=== PATIENT | female | born 1970 | race Caucasian/White ===

== ENCOUNTER → 2018-09-14 10:15 | Outpatient (CLI) | payer OTHER, SELFPAY ==
--- NOTE | 2018-09-14 | DI.MRI.S_ITS ---
PROCEDURE: MR KNEE LT WO CON INDICATIONS: INTERNAL DERANGEMENT OF BOTH KNEES TECHNIQUE: Noncontrast sagittal PD fast spin echo and T2 fast spin echo with fat saturation, sagittal 3-D FLASH with fat saturation; coronal T1 spin echo and PD fast spin echo with fat saturation, and axial PD fast spin echo with fat saturation through the knee. COMPARISON: None. FINDINGS: Image quality: Excellent. Menisci: There is amorphous high signal intensity within the medial meniscal body, without definite articular surface extension. However, there is a ganglion cyst just inferior to the medial meniscal body and posterior horn, at the medial aspect of the medial tibial plateau, measuring 30 mm craniocaudal by 30 mm anteroposterior by 5 mm transverse thickness. There is lateral extrusion of the lateral meniscus, which is detached posteriorly. Linear high signal intensity obliquely traverses the lateral meniscal body and anterior horn, demonstrating superior articular surface extension, indicating oblique tearing. Cruciate ligaments: The anterior and posterior cruciate ligaments appear intact. Medial structures: The medial collateral ligament appears intact. Visualized portions of the pes anserinus tendons appear normal. No abnormal bursal fluid. Lateral structures: The lateral collateral ligament, long and short heads of the biceps femoris tendon appear intact. The popliteus tendon appears normal. Iliotibial band appears normal. Anterior structures: The quadriceps and patellar tendons appear intact. Patellar alignment is normal. No femoral trochlear dysplasia or ventral trochlear prominence. There is mild edema in the superolateral aspect of the infrapatellar fat pad. Bones and cartilage: No bone marrow contusions or fractures. There is moderate tricompartmental periarticular osteophyte formation. There is a mildly prominent osteophyte involving the posterior aspect of the medial tibial plateau measuring 5 mm transverse by 4 mm craniocaudal. Severe diffuse articular cartilage loss overlies the weightbearing aspects of the lateral femoral condyle and lateral tibial plateau posteriorly. Joint space: There is a small knee joint effusion. No Strange's cyst. Normal appearing synovial plicae are incidentally noted. IMPRESSION: 1. Lateral meniscal tearing. 2. Medial meniscal degeneration without direct evidence of medial meniscal tearing. However, a ganglion cyst at the inferior aspect of the medial meniscus is present, which may indicate an occult underlying meniscal tear. 3. Lateral compartment articular cartilage loss. 4. Small knee joint effusion. 5. Superolateral infrapatellar fat pad edema which may indicate early/mild lateral patellofemoral friction syndrome in the appropriate clinical setting. Dictated by: Maria T Cordero M.D. on 09/14/2018 at 11:07 Approved by: Maria T Cordero M.D. on 09/14/2018 at 11:13
--- NOTE | 2018-09-14 | DI.MRI.S_ITS ---
PROCEDURE: MR KNEE RT WO CON INDICATIONS: INTERNAL DERANGEMENT OF BOTH KNEES TECHNIQUE: Noncontrast sagittal PD fast spin echo and T2 fast spin echo with fat saturation, sagittal 3-D FLASH with fat saturation; coronal T1 spin echo and PD fast spin echo with fat saturation, and axial PD fast spin echo with fat saturation through the right knee. COMPARISON: None. FINDINGS: Image quality: Excellent. Menisci: There is severe degenerative type tearing of the lateral meniscus with complete absence of the anterior horn and marked irregularity of the posterior horn. The medial demonstrates normal morphology and internal signal. The meniscal root ligaments appear intact. Cruciate ligaments: The anterior and posterior cruciate ligaments appear intact. Medial structures: The medial collateral ligament appears intact. The posterior oblique ligament, semimembranosus tendon insertions, oblique popliteal ligament, and meniscocapsular junction appear intact. Visualized portions of the pes anserinus tendons appear normal. No abnormal bursal fluid. Lateral structures: The lateral collateral ligament, long and short heads of the biceps femoris tendon appear intact. The popliteus tendon appears normal; the popliteofibular ligament appears intact. The posterosuperior and anteroinferior popliteomeniscal fascicles appear intact. The arcuate and fabellofibular ligaments appear intact, on either side of the lateral inferior geniculate artery. Iliotibial band appears normal. Anterior structures: The quadriceps and patellar tendons appear intact. Patellar alignment is normal. No femoral trochlear dysplasia or ventral trochlear prominence. No edema in the infrapatellar fat pad. Bones and cartilage: No bone marrow contusions or fractures. Tricompartmental osteoarthritis is noted including thinning of articular cartilage and osteophytosis. Osteoarthritic degenerative changes are mild to moderate in the patellofemoral and medial compartments and severe in the lateral compartment. Joint space: There is small joint effusion. There is a 0.8 x 1.6 x 0.8 cm ossified loose body posterior to the tibial attachment of the posterior cruciate ligament. No Strange's cyst. Normal appearing synovial plicae are incidentally noted. IMPRESSION: 1. Tricompartmental osteoarthritis. Osteoarthritic degenerative changes are severe in the lateral compartment. 2. 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 3. 0.8 x 1.6 x 0.8 cm ossified intra-articular loose body. 4. Small joint effusion. Dictated by: Monica Mcrae MD, PhD on 09/14/2018 at 16:27 Approved by: Monica Mcrae MD, PhD on 09/15/2018 at 6:12
== END ==
PROVIDERS: PCP Family Medicine; Visit Provider Family Medicine
DX: S83.282A Other tear of lateral meniscus, current injury, left knee, initial encounter (principal); M23.351 Other meniscus derangements, posterior horn of lateral meniscus, right knee; M17.11 Unilateral primary osteoarthritis, right knee; M67.462 Ganglion, left knee; M25.462 Effusion, left knee; M25.461 Effusion, right knee
CPT/HCPCS: 73721

== ENCOUNTER → 2021-06-20 12:16 | Outpatient (CLI) | payer OTHER, SELFPAY ==
[2021-06-20 22:35] LABS: COVID19 - ORCAS (NP or Nasal) Negative (Negative)
== END ==
PROVIDERS: PCP Family Medicine; Visit Provider Physician Assistant Medical
DX: Z20.822 Contact with and (suspected) exposure to COVID-19 (principal)
CPT/HCPCS: U0003

== ENCOUNTER → 2021-12-31 11:27 | Outpatient (CLI) | payer OTHER, SELFPAY ==
--- NOTE | 2021-12-31 | DI.MG.S_ITS ---
BILATERAL DIGITAL SCREENING MAMMOGRAM 3D/2D WITH CAD: 12/31/2021 CLINICAL: Routine screening. Comparison is made to exams dated: 05/05/2017 mammogram and 08/23/2015 mammogram - [facility]. The tissue of both breasts is heterogeneously dense. This may lower the sensitivity of mammography. Current study was also evaluated with a Computer Aided Detection (CAD) system. No significant masses, calcifications, or other findings are seen in either breast. There has been no significant interval change. IMPRESSION: NEGATIVE There is no mammographic evidence of malignancy. A 1 year screening mammogram is recommended. This exam was interpreted at Station ID: [id number]. NOTE: For mammograms, a report in lay terms will be sent to the patient. Approximately 15% of breast malignancies will not be visualized mammographically. In the management of a palpable breast mass, a negative mammogram must not discourage biopsy of a clinically suspicious lesion. Electronically Signed By: Sawyer patricio/spencer:12/31/2021 12:15:26 letter sent: Normal Exam ACR BI-RADS Category 1: Negative 3341F
== END ==
PROVIDERS: PCP Family Medicine; Referring Provider Family Medicine; Visit Provider Family Medicine
DX: Z12.31 Encounter for screening mammogram for malignant neoplasm of breast (principal)
CPT/HCPCS: 77063; 77067

== ENCOUNTER → 2024-02-23 11:04 | Outpatient (CLI) | payer OTHER, SELFPAY ==
--- NOTE | 2024-02-23 11:09 | DI.RAD.S_ITS ---
PROCEDURE: XR CERVICAL SPINE 2V OR 3V INDICATIONS: NECK PAIN TECHNIQUE: 3 view(s) of the cervical spine were acquired. COMPARISON: None. FINDINGS: Bones: No fractures or dislocations to the T1 level. The lateral masses of C1 appear intact on the odontoid view. No suspicious bony lesions. Soft tissues: No prevertebral soft tissue swelling. IMPRESSION: No displaced fracture or traumatic subluxation. Dictated by: Dane Huff M.D. on 02/23/2024 at 15:52 Approved by: Dane Huff M.D. on 02/23/2024 at 15:53
--- NOTE | 2024-02-23 12:52 | DI.MG.S_ITS ---
BILATERAL DIGITAL SCREENING MAMMOGRAM 3D/2D WITH CAD: 02/23/2024 CLINICAL: Routine screening. Comparison is made to exams dated: 12/31/2021 mammogram, 05/05/2017 mammogram, and 08/23/2015 mammogram - [facility]. There are scattered areas of fibroglandular density in both breasts (category b / 25%-50% glandular tissue). Current study was also evaluated with a Computer Aided Detection (CAD) system. No significant masses, calcifications, or other findings are seen in either breast. There has been no significant interval change. IMPRESSION: NEGATIVE There is no mammographic evidence of malignancy. A 1 year screening mammogram is recommended. Based on the Tyrer Cuzick model (a risk assessment model) the patient's lifetime risk is 9.5% and her 10 year risk is 2.6%. According to the ACR, ACS, and NCCN guidelines, an annual breast MRI exam along with mammogram is recommended if the patient's lifetime risk is 20% or greater. This exam was interpreted at Station ID: [id number]. NOTE: For mammograms, a report in lay terms will be sent to the patient. Approximately 15% of breast malignancies will not be visualized mammographically. In the management of a palpable breast mass, a negative mammogram must not discourage biopsy of a clinically suspicious lesion. Electronically Signed By: Ernestina hennessy/spencer:02/23/2024 15:42:58 letter sent: Normal Exam ACR BI-RADS Category 1: Negative 3341F
== END ==
PROVIDERS: PCP Family Medicine; Referring Provider Family Medicine; Visit Provider Family Medicine
DX: Z12.31 Encounter for screening mammogram for malignant neoplasm of breast (principal); R92.323 Mammographic fibroglandular density, bilateral breasts; M54.2 Cervicalgia
CPT/HCPCS: 72040; 77063; 77067

== ENCOUNTER → 2025-01-24 11:59 | Outpatient (CLI) | payer BC, SELFPAY ==
--- NOTE | 2025-01-24 11:59 | DI.US.S_ITS ---
PROCEDURE: US PELVIC COMPLETE INDICATIONS: Postmenopausal bleeding TECHNIQUE: Real-time scanning was performed of the pelvic organs, with image documentation. Additional endovaginal scanning was necessary due to incomplete visualization of the adnexal and endometrial structures by transabdominal scanning. COMPARISON: None. FINDINGS: Uterus: Uterus is anteverted and enlarged in size at 12.9 x 9.2 x 12 point cm. The myometrium is heterogeneous. The endometrium measures 6.3 mm combined thickness. Right intramural fibroid measuring 7.2 x 6.7 x 5.8 cm. Multiple additional small fibroids. Ovaries: The right ovary is not seen. The left ovary measures 2.2 x 2.5 x 2.4 cm, with a calculated ovarian volume of 6.8 cc. Left ovarian cyst measuring 1.7 x 2.2 x 2.0 cm. Other: No pathologic free abdominal or pelvic fluid. IMPRESSION: Endometrium is thickened measuring 6 mm. Recommend short-term follow-up ultrasound or endometrial sampling for further evaluation. Left ovarian cyst measuring 2.2 cm, given postmenopausal status, follow-up ultrasound is recommended to ensure stability or resolution. Large intramural fibroid measuring 7.2 cm. We strive to produce accurate, complete, and clear reports of imaging services. To assist us in improving patient care, this report was composed using standard report templates and voice recognition software. Therefore, it may contain abnormal punctuation, insertions and/or omissions. Occasional wrong-word or sound-alike substitutions may occur. Though we review the report and make efforts to correct it, we do recommend that the report be read carefully in proper context to recognize any text inaccuracies. Dictated by: Bc Metzger M.D. on 01/24/2025 at 16:27 Approved by: Bc Metzger M.D. on 01/24/2025 at 16:29
== END ==
PROVIDERS: PCP Family Medicine; Referring Provider Obstetrics & Gynecology; Visit Provider Obstetrics & Gynecology
DX: N95.0 Postmenopausal bleeding (principal); D25.1 Intramural leiomyoma of uterus; N83.202 Unspecified ovarian cyst, left side; R93.89 Abnormal findings on diagnostic imaging of other specified body structures
CPT/HCPCS: 76830; 76856

== ENCOUNTER 2025-03-26 13:04 | Day surgery (SDC) | payer BC, SELFPAY ==
[2025-03-20 11:45] VITALS: BMI 25.2
[2025-03-26] VITALS (9 sets, daily range): BP systolic 107–137; BP diastolic 44–78; PULSE 60–65; RESP 13–18; TEMP 36.1–36.6; O2SAT 98–100; BMI 25.2
--- NOTE | 2025-03-26 | PATH_ITS ---
[facility] Accession Number: [id number] No. of containers..02 Tissue . 01 Material submitted: . PART A: endometrium - ENDOMETRIAL CURETTINGS PART B: endocervix - ENDOCERVICAL POLYP . 01 Diagnosis: A. ENDOMETRIAL CURETTINGS: Polypoid fragments of lower uterine segment/endometrium; negative for endometrioid intraepithelial neoplasia or malignancy. Ectocervix with no significant atypia. . B. ENDOCERVICAL POLYP: Fragments of benign polyp, favor origin from lower uterine segment. AYSE 03/29/2025 1102 Local . 01 Electronically signed: . Rachel Gonzalez MD, Pathologist NPI- [id number] . 01 Gross description: . A. Received in formalin with two identifiers and endometrial curettings, are multiple rodgers soft tissue fragments admixed with mucohemorrhagic material received on Telfa paper aggregating to 2.4 x 1.3 x 0.3 cm. Filtered and submtited in cassette A1. B. Received in formalin with two identifiers and endocervical polyp, are multiple rodgers soft tissue fragments aggregating to 1.0 x 0.8 x 0.2 cm. Filtered and submitted in cassette B1. ([id number]) /AYSE 03/27/2025 0916 Local . 01 Pathologist provided ICD-10: N93.9 . 01 CPT . 628021, 853610 Specimen Comment: A courtesy copy of this report has been sent to [facility]ology Performed at: [address], [place], [place] [id number] MD Cristofer Pino MD Phone: [phone]
[2025-03-26] MEDS: ACETAMINOPHEN IV 1,000 MG/100 ML VIAL 400 MG IV (14:14)
--- NOTE | 2025-03-26 14:14 | PM.PREOP ---
Pre-operative Note Interval Note History & Physical reviewed/Exam performed by Physician: Yes Changes to H&P: No ASA Class (for procedural sedation): II
[2025-03-26] MEDS: SCOPOLAMINE 1 PATCH TOP (14:15)
[2025-03-26] MEDS: LACTATED RINGERS 1,000 ML 42 ML IV (14:18)
[2025-03-26] MEDS: SILVER NITRATE STICK 1 EACH TOP (14:40)
--- NOTE | 2025-03-26 14:49 | SUR.OPER ---
Lithotomy on padded OR bed, head on pillow, arms secured on padded arm boards at <90 degrees abduction. Legs secured in padded yellow fins stirrups.
--- NOTE | 2025-03-26 15:11 | PM.OP.1 ---
Operative Date/Time/Diagnoses Date of procedure: 03/26/25 Time of procedure: 14:30 Pre-op diagnosis: Abnormal uterine bleeding/abnormal pelvic ultrasound Post-op diagnosis: same Procedure & Clinicians Procedure: hysteroscopy, dilation and curettage, placement of levonorgestrel (mirena) IUD Same procedure as scheduled: Yes Indications: AUB, abnormal pelvic US Surgeon: Eugenie Ferrera Click Yes if Unassisted: Yes Anesthesia Type: General Operative Notes Findings: normal external female genitalia, perineum and anus endocervical polyp <1cm enlarged multi-lyeomatous uterus with irregular contour palpable to 2cm below umbilicus endometrial cavity with mass effect secondary to intramural fibroid, no visible submucosal fibroid or polyp bilateral ostia visualized Closure Type: not applicable Specimen(s): other (1) endocervical polyp; 2) endometrial curettings ) Prosthetic devices, grafts, tissues, transplants, or devices: mirena IUD obtained from office supply Estimated Blood Loss (mL): 5 Procedure in detail: Pt was taken to the operating room, transferred to OR table and anesthesia was induced with placement of ETT.? Pt had her legs placed in Carlos A stirrups and an exam under anesthesia was performed. The patient was prepped and draped in a sterile fashion.? A time out was performed. ? A sterile speculum was inserted into the vagina.? The cervix was visualized and grasped anteriorly using a single tooth tenaculum.? The uterus sounded to 14cm and the cervical os was serially dilated using Shelton dilators up to 17f to allow for passage of the hysteroscope.? The 5mm 0 degree hysteroscope was then inserted into the uterus with findings as noted.? The hysteroscope was removed the observed endocerivcal polyp was removed bluntly using polyp forceps and passed off the field for permanent study. The uterus was then sharply curetted until a gritty texture was noted throughout.? The mirena IUD obtained from office supply was then placed per intermediate manager instructions; strings trimmed to 3cm. The tenaculum was removed and hemostasis was noted at insertion sites following brief application of silver nitrate.? The speculum was removed and hemostasis was again noted to be excellent.? The patient then had her legs taken out of stirrups.? The patient tolerated the procedure well and without difficulty.? The patient was awakened from anesthesia and taken to PACU in stable condition. Complications: none Post-operative Condition: stable Disposition: PACU Plan for aftercare: anticipate dc to home pending routine postoperative recovery
[2025-03-26] MEDS: OXYCODONE IR 5 MG TABLET PO (15:27)
== END 2025-03-26 16:14 | disposition home or self-care (01) ==
PROVIDERS: PCP Family Medicine; Referring Provider Obstetrics & Gynecology; Visit Provider Obstetrics & Gynecology
PROC: 0UDB8ZZ Extraction of Endometrium, Via Natural or Artificial Opening Endoscopic (ICD-10-PCS; CPT 58558; principal; 2025-03-26 15:00)
DX: N93.9 Abnormal uterine and vaginal bleeding, unspecified (principal); Z30.430 Encounter for insertion of intrauterine contraceptive device; D25.1 Intramural leiomyoma of uterus; N84.0 Polyp of corpus uteri; N84.1 Polyp of cervix uteri
CPT/HCPCS: 58558; 58300; C1713; J0131; J1100; J1885; J2405; J2704